=== PATIENT | male | born 1970 | race Caucasian/White ===

== ENCOUNTER 2020-09-22 08:00 | Outpatient (CLI) | payer OTHER ==
[2020-09-22 14:08] LABS: BASOPHILS % (AUTO) 0.4 %; EOSINOPHILS # (AUTO) 0.1 10^3/uL (0.0-0.7); EOSINOPHILS % (AUTO) 0.8 %; HCT - HEMATOCRIT 44.2 % (42.0-52.0); LYMPHOCYTES % (AUTO) 13.1 %; MEAN CORPUSCULAR HEMOGLOBIN 26.7 pg (27.0-31.0); MEAN CORPUSCULAR HGB CONC 31.7 g/dL (32.0-36.0); MEAN CORPUSCULAR VOLUME 84.2 fL (80.0-94.0); MEAN PLATELET VOLUME 9.3 fL (7.4-11.4); MONOCYTES # (AUTO) 0.5 10^3/uL (0.0-1.0); MONOCYTES % (AUTO) 5.9 %; NEUTROPHILS # (AUTO) 6.1 10^3/uL (1.5-6.6); NEUTROPHILS % (AUTO) 79.5 %; PLT - PLATELET COUNT 209 10^3/uL (130-450); RED BLOOD COUNT 5.25 10^6/uL (4.70-6.10); WHITE BLOOD COUNT 7.6 x10^3/uL (4.8-10.8)
[2020-09-22 15:12] LABS: ALBUMIN 4.5 g/dL (3.2-5.5); ALBUMIN/GLOBULIN RATIO 1.6 (1.0-2.2); ALKALINE PHOSPHATASE 41 IU/L (42-121); ALT ALANINE AMINOTRANSFERASE < 10 IU/L (10-60); AST ASPARTATE AMINOTRANSFERASE 27 IU/L (10-42); BILIRUBIN,TOTAL 0.7 mg/dL (0.2-1.0); BUN - BLOOD UREA NITROGEN 16 mg/dL (6-20); CALCIUM 9.2 mg/dL (8.5-10.3); CARBON DIOXIDE - CO2 27 mmol/L (21-32); CHLORIDE 105 mmol/L (101-111); CREATININE 0.7 mg/dL (0.6-1.2); GFR - MDRD 119 (>89); GLUCOSE 89 mg/dL (70-100); POTASSIUM 3.7 mmol/L (3.5-5.0); SODIUM 138 mmol/L (135-145); TOTAL PROTEIN 7.4 g/dL (6.7-8.2)
== END 2020-09-22 23:59 | disposition home or self-care (01) ==
LOC: LAB.S 08:00
PROVIDERS: ATTEND Physician Assistant Medical
DX: K04.7 Periapical abscess without sinus (principal); K06.0 Gingival recession
CPT/HCPCS: 36415; 80053; 82306; 85025

== ENCOUNTER 2020-10-16 18:11 | Emergency (ER) | payer OTHER ==
--- OUTSIDE RECORDS SUMMARY | 2020-10-16 18:14 | EXTERNAL MEDICAL SUMMARY RPT | Continuity of Care Document ---
:1970 Demographics Phone Unavailable Preferred Language Unknown Marital Status Unknown Druze Affiliation Unknown Race Unknown Ethnic Group Unknown Author Organization [facility] Address [address] [phone] Phone Care Team Providers Name Role Phone PA-C Unavailable Unavailable Problems date description facility 20200922 Alcohol intake [facility] [place] 20200922 Alcohol use [facility] [place] 20200922 CBC W/Diff/Plt [facility] [place] 20200922 COMPREHENSIVE METABOLIC PANEL [facility] [place] 20200922 Dental abscess [facility] [place] 20200922 Details of drug misuse behavior [facility] [place] 20200922 Exercise [facility] [place] 20200922 Generalized gingival recession [facility] [place] 20200922 Generalized gingival recession, severe [facility] [place] 20200922 Health-related behavior [facility] [place] 20200922 Never smoker [facility] [place] 20200922 Periapical abscess without sinus [facility] [place] 20200922 Tobacco smoking status NHIS [facility] [place] 20200922 Tobacco use and exposure [facility] [place] 20200922 VITAMIN D, 25-OH TOTAL, [place] [facility] [place] Medications date description facility 20200922 AMOXICILLIN [facility] [place] 20200922 AMOXICILLIN [facility] [place] Procedures date description facility 20200922 COMPREHENSIVE METABOLIC PANEL [facility] [place] date description facility 20200922 VITAMIN D, 25-OH TOTAL, [place] [facility] [place] date description facility 20200922 CBC W/Diff/Plt [facility] [place] Vital Signs date measurement value source 20200922 BMI 23.76 kg/m2 20200922 BP_diastolic 97 mm[Hg] 20200922 BP_systolic 137 mm[Hg] 20200922 heart_rate 65 /min 20200922 height_metric 177.8 cm 20200922 height_standard 70 in 20200922 respiration_rate 17 /min 20200922 weight_metric 74.84 kg 20200922 weight_standard 165 lb Social History date description facility [id number]
[2020-10-16] MEDS ORDERED: LIDOCAINE 1% 2 ML VIAL SUBQ STA (18:46)
[2020-10-16] MEDS ORDERED: TETANUS/DIPHTHERIA/PERTUSSIS 0.5 ML SYRINGE IM ONE (18:46)
--- NOTE | 2020-10-16 18:49 | ED Physician Documentation ---
History of Present Illness - Stated complaint Stated Complaint: LT HAND LAC - Chief complaint Chief Complaint: Ext Problem - History obtained from History obtained from: Patient - Additonal information Additional information: 50-year-old male presents emergency department for evaluation of a large splinter in his left hand. He was helping his brother move wood When a large splinter broke off and impaled his hand between the thumb and index finger. No splinter is visible but a large piece of wood is felt underneath the skin of the palm and is 4 to 5 cm in length and quite firm. Unknown last tetanus. Patient is right-hand dominant. Review of Systems Constitutional: denies: Fever, Chills Eyes: reports: Reviewed and negative Ears: reports: Reviewed and negative Nose: reports: Reviewed and negative Throat: reports: Reviewed and negative Cardiac: reports: Reviewed and negative Respiratory: reports: Dyspnea, Reviewed and negative GI: reports: Abdominal Pain : reports: Reviewed and negative Skin: reports: Other (hand splitner left palm) Musculoskeletal: reports: Reviewed and negative PD PAST MEDICAL HISTORY - Past Medical History Past Medical History: No - Past Surgical History Past Surgical History: No - Present Medications Home Medications: Ambulatory Orders Medication Instructions Recorded Confirmed cephALEXin [Keflex] 500 mg PO Q6H #20 10/16/20 - Allergies Allergies/Adverse Reactions: Allergies Allergy/AdvReac Type Severity Reaction Status Date / Time No Known Drug Allergies Allergy Verified 10/16/20 18:14 - Social History Does the pt smoke?: No Smoking Status: Never smoker Does the pt drink ETOH?: Yes Does the pt have substance abuse?: No - Immunizations Immunizations are current?: Yes - POLST Patient has POLST: No PD ED PE EXPANDED - Extremities Extremities: Left hand (normal flexion/extension and grasp of fingers. Distal CMST preserved. palpable FB in the palm of the left hand measuring about 5 cm in length) Results - Vitals Vitals: Vital Signs - 24 hr 10/16/20 18:15 Temperature 36.7 C Heart Rate 70 Respiratory 16 Rate Blood Pressure 113/72 O2 Saturation 97 Oxygen O2 Source Room air - Rads (name of study) left hand Radiology: Final report received (no e/o radioopaque FB) Procedures - FB removal FB location: Subcutaneous FB removal preparation: Local anesthesia-specify (1% lidocaine) Removal method: Foreceps, Incision FB removal aftercare: No complications, Patient tolerated well, Removed successfully (6 cm wooden splinter removed successfully from the palm of left hand.) PD MEDICAL DECISION MAKING - ED course Complexity details: reviewed results, re-evaluated patient, d/w patient ED course: 50-year-old male presents emergency department for evaluation of a wooden splinter in the palm of his left hand sustained this afternoon when he was helping his brother with logs. He had a palpable long 5 to 6 cm foreign body in the palm of the left hand. X-ray did not show evidence of foreign body however this was organic debris and not likely to be seen. He had normal flexion extension of the digits against resistance without evidence of tendon injury. Was able to successfully remove the wooden splinter utilizing a combination of positive pressure force with forceps once the splinter was located 1 small incisions were made at both ends of the palpated foreign body. The measured foreign body on removal was the same length estimated on palpation. Following the procedure he had normal flexion extension and grasp of the left hand with preserved CMST. Tetanus was updated today patient was given ceftriaxone and will be discharged with a prescription for cephalexin. Emergent return precautions discussed for concerns of infection. Departure - Departure Disposition: 01 Home, Self Care Clinical Impression: Foreign body (FB) in soft tissue, Splinter in skin Condition: Stable Record reviewed to determine appropriate education?: Yes Instructions: ED Foreign Body Soft Tissue Prescriptions: cephALEXin [Keflex] 500 mg PO Q6H #20 Comments: It looks like we were able to successfully remove the wooden splinter from your hand. However because this was wood and organic material it is possible that there are small splinters left over in the tissue. I would like you to fill the prescription for the cephalexin to begin taking as directed. You may gently wash your hand with warm soap and water apply antibiotic ointment to the incision spots and then simple bandages. If you have any concerns of infection, fevers, redness milky drainage increased pain or red streaking please return immediately to the ER. Your tetanus was updated today and will be current for the next 7 to 10 years.
--- OUTSIDE RECORDS SUMMARY | 2020-10-16 18:54 | EXTERNAL MEDICAL SUMMARY RPT | Continuity of Care Document ---
:1970 Demographics Phone Unavailable Preferred Language Unknown Marital Status Unknown Gnosticist Affiliation Unknown Race Unknown Ethnic Group Unknown Author Organization [facility] Address [address] [phone] Phone Care Team Providers Name Role Phone Pati BURRELL, Unavailable Unavailable Problems date description facility 20200922 Alcohol intake [facility] [place] 20200922 Alcohol use [facility] [place] 20200922 CBC W/Diff/Plt [facility] [place] 20200922 COMPREHENSIVE METABOLIC PANEL [facility] [place] 20200922 Dental abscess [facility] [place] 20200922 Details of drug misuse behavior [facility] [place] 20200922 Exercise [facility] [place] 20200922 Generalized gingival recession [facility] [place] 20200922 Generalized gingival recession, severe [facility] [place] 20200922 Health-related behavior [facility] [place] 20200922 Never smoker [facility] [place] 20200922 Periapical abscess without sinus [facility] [place] 20200922 Tobacco smoking status NHIS [facility] [place] 20200922 [facility] and [facility] [place] 20200922 VITAMIN D, 25-OH TOTAL, [place] [facility] [place] Medications date description facility 20200922 AMOXICILLIN Walk-In [...] description facility 20200922 CBC W/Diff/Plt [facility] [place] Vital Signs date measurement value source 20200922 BMI 23.76 kg/m2 20200922 BP_diastolic 97 mm[Hg] 20200922 BP_systolic 137 mm[Hg] 20200922 heart_rate 65 /min 20200922 height_metric 177.8 cm 20200922 height_standard 70 in 20200922 respiration_rate 17 /min 20200922 weight_metric 74.84 kg 20200922 weight_standard 165 lb Social History date description facility [id number]
[2020-10-16] MEDS ORDERED: BUFFERED LIDOCAINE 10 ML SYRINGE SUBQ STA (19:01)
--- NOTE | 2020-10-16 19:20 | XRAY Report ---
PROCEDURE: Hand 3 View LT INDICATIONS: splinter in palm TECHNIQUE: 3 views of the hand(s) acquired. COMPARISON: None FINDINGS: Bones: No fractures or dislocations. No suspicious bony lesions. Soft tissues: No suspicious soft tissue calcifications. No radiopaque foreign body identified. IMPRESSION: No evidence of radiopaque foreign body. No acute bony abnormality of the left hand. Reviewed by: Steve Trevizo MD on 10/16/2020 7:19 PM PDT Approved by: Steve Trevizo MD on 10/16/2020 7:19 PM PDT Station ID: [id number]
[2020-10-16] MEDS ORDERED: LIDOCAINE 1% 2 ML VIAL MC ONE (19:26)
[2020-10-16] MEDS ORDERED: cefTRIAXone 1 GM VIAL IM STA (19:26)
[2020-10-16 20:11] VITALS: BP 116/72
== END 2020-10-16 20:09 | disposition home or self-care (01) ==
LOC: ED 18:11
DX: S60.552A Superficial foreign body of left hand, initial encounter (principal); W45.8XXA Other foreign body or object entering through skin, initial encounter; Y93.89 Activity, other specified; Z23 Encounter for immunization
CPT/HCPCS: 10120; 90471

== ENCOUNTER 2021-09-02 07:07 | Outpatient (CLI) | payer OTHER | END 2021-09-02 07:08 | disposition home or self-care (01) | LOC: LAB.S 07:07 | PROVIDERS: ATTEND Registered Nurse | DX: Z53.9 Procedure and treatment not carried out, unspecified reason (principal) ==

== ENCOUNTER 2021-11-01 08:00 | Outpatient (CLI) | payer OTHER ==
--- NOTE | 2021-11-01 11:24 | XRAY Report ---
PROCEDURE: Finger(s) RT INDICATIONS: FINGER PAIN RIGHT TECHNIQUE: AP hand, 2 views of the second finger(s) acquired. COMPARISON: None FINDINGS: Bones: There is a comminuted fracture of the distal tip of the second finger, with moderate displace ment. No additional fractures or dislocations. No suspicious bony lesions. Soft tissues: Soft tissue injury with soft tissue gas can be seen. IMPRESSION: Open fracture involving the distal tip of the distal phalanx of the second finger, with moderate disp lacement and comminuted fracture fragments. Reviewed by: Eladio Fischer MD on 11/01/2021 10:23 AM [facility] Approved by: Eladio Fischer MD on 11/01/2021 10:23 AM [facility] Station ID: [id number]
== END 2021-11-01 23:59 | disposition home or self-care (01) ==
LOC: DI.S 08:00
PROVIDERS: ATTEND Physician Assistant
DX: S62.630B Displaced fracture of distal phalanx of right index finger, initial encounter for open fracture (principal)

== ENCOUNTER 2022-01-06 08:29 | Outpatient (CLI) | payer OTHER ==
[2022-01-06 14:23] LABS: BASOPHILS % (AUTO) 0.6 %; EOSINOPHILS # (AUTO) 0.1 10^3/uL (0.0-0.7); EOSINOPHILS % (AUTO) 3.2 %; HCT - HEMATOCRIT 45.3 % (42.0-52.0); HGB - HEMOGLOBIN 14.2 g/dL (14.0-18.0); LYMPHOCYTES # (AUTO) 0.9 10^3/uL (1.5-3.5); LYMPHOCYTES % (AUTO) 26.4 %; MEAN CORPUSCULAR HEMOGLOBIN 26.9 pg (27.0-31.0); MEAN CORPUSCULAR HGB CONC 31.3 g/dL (32.0-36.0); MEAN PLATELET VOLUME 9.6 fL (7.4-11.4); MONOCYTES # (AUTO) 0.3 10^3/uL (0.0-1.0); MONOCYTES % (AUTO) 7.4 %; NEUTROPHILS # (AUTO) 2.2 10^3/uL (1.5-6.6); NEUTROPHILS % (AUTO) 62.1 %; PLT - PLATELET COUNT 214 10^3/uL (130-450); RED BLOOD COUNT 5.27 10^6/uL (4.70-6.10); RED CELL DISTRIBUTION WIDTH 13.2 % (12.0-15.0); WHITE BLOOD COUNT 3.5 x10^3/uL (4.8-10.8)
[2022-01-06 14:54] LABS: ALBUMIN 4.5 g/dL (3.2-5.5); ALBUMIN/GLOBULIN RATIO 1.6 (1.0-2.2); ALKALINE PHOSPHATASE 38 IU/L (42-121); ALT ALANINE AMINOTRANSFERASE 10 IU/L (10-60); AST ASPARTATE AMINOTRANSFERASE 23 IU/L (10-42); BUN - BLOOD UREA NITROGEN 19 mg/dL (6-20); CALCIUM 9.4 mg/dL (8.5-10.3); CARBON DIOXIDE - CO2 30 mmol/L (21-32); CHLORIDE 104 mmol/L (101-111); CHOL/HDL RATIO 4.6 (<5.0); CHOLESTEROL 255 mg/dL; CREATININE 0.8 mg/dL (0.6-1.2); GFR - MDRD 102 (>89); GLUCOSE 95 mg/dL (70-100); HDL CHOLESTEROL 55 mg/dL; LDL CHOLESTEROL,CALCULATED 181 mg/dL; LDL/HDL RATIO 3.3 (<3.6); POTASSIUM 4.6 mmol/L (3.5-5.0); SODIUM 137 mmol/L (135-145); THYROID STIMULATING HORMONE 3.07 uIU/mL (0.34-5.60); TOTAL PROTEIN 7.4 g/dL (6.7-8.2); TRIGLYCERIDES 96 mg/dL; VLDL CHOLESTEROL 19 mg/dL
== END 2022-01-06 08:30 | disposition home or self-care (01) ==
LOC: LAB.S 08:29
PROVIDERS: ATTEND Registered Nurse
DX: E78.9 Disorder of lipoprotein metabolism, unspecified (principal); Z13.228 Encounter for screening for other metabolic disorders; Z12.5 Encounter for screening for malignant neoplasm of prostate; Z13.0 Encounter for screening for diseases of the blood and blood-forming organs and certain disorders involving the immune mechanism
CPT/HCPCS: 36415; 80053; 80061; 83721; 84153; 84443; 85025